=== PATIENT | female | born 1955 | race Caucasian/White ===

== ENCOUNTER → 2020-12-26 | Outpatient (CLI) | payer MEDICARE, OTHER | LOC: RAD 16:58 | DX: M17.12 Unilateral primary osteoarthritis, left knee (principal); S83.242A Other tear of medial meniscus, current injury, left knee, initial encounter; Z91.81 History of falling ==

== ENCOUNTER 2022-01-02 17:51 | Emergency (ER) | payer MEDICARE, OTHER ==
[~2022-01-02] VITALS: Ht 165.1 cm; Wt 77.3 kg
[2022-01-02] MEDS ORDERED: ARMOUR THYROID120 M1 PO (18:05)
[2022-01-02] MEDS ORDERED: CEPHALEXIN500 M1 PO (18:06)
[2022-01-02] MEDS ORDERED: CARDIZEM120 M1 PO (18:06)
[2022-01-02] MEDS ORDERED: FLECAINIDE ACE150 MG PO (18:06)
[2022-01-02] MEDS ORDERED: FLAGYL375 MG PO (18:07)
[2022-01-02 18:34] LABS: BASO # 0.06 K/mm3 (0.02-0.10); EOS # 0.22 K/mm3 (0.04-0.40); EOS % 2.7 % (1.0-5.0); HEMATOCRIT 42.2 % (37.0-47.0); HEMOGLOBIN 14.1 g/dL (12.5-16.0); MEAN CELL VOLUME 91 fl (78-100); MEAN CORPUSCULAR HEMOGLOBIN 31 pg (27-31); MEAN CORPUSCULAR HGB CONC 33 g/dL (33-37); MEAN PLATELET VOLUME 9.6 fl (7.4-10.4); MONO # 0.79 K/mm3 (0.20-0.80); NEU # 4.22 K/mm3 (1.40-6.50); PLATELET COUNT 321 K/mm3 (130-400); RED BLOOD COUNT 4.63 M/mm3 (4.10-5.30); RED CELL DISTRIBUTION WIDTH 12.9 % (11.5-14.5); WHITE BLOOD COUNT 8.1 K/mm3 (4.8-10.8)
[2022-01-02 19:30] LABS: ALBUMIN 4.6 g/dL (3.4-4.8); POTASSIUM 4.5 mmol/L (3.5-5.1)
[2022-01-02 19:31] LABS: CALCIUM 9.8 mg/dL (8.3-10.5)
[2022-01-02 19:33] LABS: TOTAL PROTEIN 8.2 g/dL (6.2-8.1)
[2022-01-02 19:34] LABS: TOTAL BILIRUBIN 0.2 mg/dL (0.2-1.2)
[2022-01-02 21:40] VITALS: BP 139/66
== END 2022-01-02 21:40 | disposition home or self-care (01) ==
LOC: ED 17:51
PROVIDERS: Family Medicine
DX: K57.32 Diverticulitis of large intestine without perforation or abscess without bleeding (principal); Z90.49 Acquired absence of other specified parts of digestive tract; Z90.710 Acquired absence of both cervix and uterus; Z88.0 Allergy status to penicillin; Z88.2 Allergy status to sulfonamides
CPT/HCPCS: J1885

== ENCOUNTER 2022-05-30 17:30 | Emergency (ER) | payer MEDICARE, OTHER ==
[~2022-05-30] VITALS: Ht 165.1 cm; Wt 77.3 kg
[~2022-05-30 17:30] MED LIST: ARMOUR THYROID120 M1 PO; CARDIZEM120 M1 PO; CEPHALEXIN500 M1 PO; FLAGYL375 MG PO; FLECAINIDE ACE150 MG PO
[2022-05-30 18:07] LABS: ALBUMIN 4.1 g/dL (3.4-4.8); POTASSIUM 4.1 mmol/L (3.5-5.1)
[2022-05-30 18:12] LABS: TOTAL BILIRUBIN 0.3 mg/dL (0.2-1.2)
[2022-05-30 18:16] LABS: BASO # 0.04 K/mm3 (0.02-0.10); EOS % 2.6 % (1.0-5.0); HEMATOCRIT 40.8 % (37.0-47.0); HEMOGLOBIN 13.5 g/dL (12.5-16.0); LYMPH# 2.71 K/mm3 (1.50-4.00); MEAN CELL VOLUME 91 fl (78-100); MEAN CORPUSCULAR HEMOGLOBIN 30 pg (27-31); MEAN CORPUSCULAR HGB CONC 33 g/dL (33-37); MEAN PLATELET VOLUME 8.3 fl (7.4-10.4); NEU # 4.06 K/mm3 (1.40-6.50); PLATELET COUNT 351 K/mm3 (130-400); RED BLOOD COUNT 4.51 M/mm3 (4.10-5.30); RED CELL DISTRIBUTION WIDTH 12.8 % (11.5-14.5); WHITE BLOOD COUNT 7.8 K/mm3 (4.8-10.8)
[2022-05-30 21:15] LABS: LIPASE 21 U/L (8-78)
[2022-05-30 22:00] VITALS: BP 122/58
== END 2022-05-30 22:00 | disposition home or self-care (01) ==
LOC: ED 17:30
PROVIDERS: Family Medicine
DX: R07.89 Other chest pain (principal); R51.9 Headache, unspecified; R11.0 Nausea
CPT/HCPCS: J2060; J2270; J2550; J3490; J7040